=== PATIENT | female | born 1950 | race Caucasian/White ===

== ENCOUNTER → 2017-02-02 | Outpatient (CLI) | payer OTHER ==
[~2017-02-02] MED LIST: ASPIRIN325 MG PO; BYSTOLIC10 MG PO; CENTRUM SILVER1 EAC1 PO; CHANTIX1 MG PO; DOXYCYCLINE HYC20 MG PO; LIPITOR DPS10 MG PO; OYSCO 500+D TA1 EACH PO; PROZAC40 MG PO; VASERETIC 10-251 TAB PO
== END | disposition home or self-care (01) ==
LOC: RAD.S 08-03 14:58
DX: N60.01 Solitary cyst of right breast (principal)